=== PATIENT | male | born 1995 ===

== ENCOUNTER 2017-12-16 06:12 | Day surgery (SDC) | payer OTHER ==
[~2017-12-16 06:12] MED LIST: Buffered Lidocaine 0.9% SYRIN* 5 ML/SYR SYRINGE INTRADERM ONE
[2017-12-16] MEDS ORDERED: ceFAZolin 2 GM PREMIX (*) 2 GM/50 ML BAG IVPB ONE (06:19)
[2017-12-16] MEDS ORDERED: fentaNYL* 50 MCG/ML 2 ML VIAL (100 MCG VIAL) ONE ×2 (07:04→09:34)
[2017-12-16] MEDS ORDERED: Midazolam* 1 MG/ML 2 ML VIAL (2 MG) ONE (07:04)
[2017-12-16] MEDS ORDERED: Bupivacaine 0.5%* 50 ML VIAL ONE (07:09)
[2017-12-16] MEDS ORDERED: Lidocaine 2% PF* 10 ML AMP ONE (07:09)
[2017-12-16] MEDS ORDERED: Rocuronium* 10 MG/ML VIAL ONE (07:10)
[2017-12-16] MEDS ORDERED: Acetaminophen TAB* 325 MG PO PRN (07:52)
[2017-12-16] MEDS ORDERED: Scopolamine 1.5 mg* PATCH TRANSDERM PRN (07:52)
[2017-12-16] MEDS ORDERED: oxyCODONE/Acetamin 5/325 MG* TAB PO PRN (07:52)
[2017-12-16] MEDS ORDERED: diPHENhydraMINE IV* 50 MG/ML 1 ml VIAL (BENADRYL) IV PRN (07:52)
[2017-12-16] MEDS ORDERED: Naloxone* 0.4 MG/ML 1 ML VIAL IV PRN (07:52)
[2017-12-16] MEDS ORDERED: Ondansetron INJ* 2 MG/ML VIAL IV PRN (07:52)
[2017-12-16] MEDS ORDERED: fentaNYL* 50 MCG/ML 2 ML VIAL (100 MCG VIAL) IV PRN (07:52)
[2017-12-16] MEDS ORDERED: oxyCODONE TAB* 5 MG TAB PO PRN (07:52)
[2017-12-16] MEDS ORDERED: HYDROmorphone INJ* 1 MG/ML CARPUJECT SYRINGE IV PRN (07:52)
[2017-12-16] MEDS ORDERED: Lidocaine 2% PF * 5 ML VIAL ONE (08:06)
[2017-12-16] MEDS ORDERED: Ketorolac INJ* 30 MG/ML 1 ML VIAL ONE (08:06)
[2017-12-16] MEDS ORDERED: Dexamethasone IV* 4 MG/ML 1 ML (4 MG) ONE (08:06)
[2017-12-16] MEDS ORDERED: Propofol* 10 MG/ML 20 ML BTL IV PUSH ONE (08:06)
[2017-12-16] MEDS ORDERED: Ondansetron INJ* 2 MG/ML VIAL ONE (08:06)
[2017-12-16] MEDS ORDERED: oxyCODONE/Acetamin 5/325 MG* TAB ONE (09:34)
[2017-12-16] MEDS ORDERED: oxyCODONE TAB* 5 MG TAB ONE (09:41)
[2017-12-16] MEDS ORDERED: Acetaminophen TAB* 325 MG ONE (09:41)
[2017-12-16 10:20] VITALS: BP 126/80
--- NOTE | 2017-12-16 22:18 | RAD ---
CPT II Codes: G9500 INDICATION: Right Achilles lengthening TECHNIQUE: Intraoperative fluoroscopy was provided during right Achilles lengthening. FINDINGS: 2 spot films depict plate and screw fixators overlying the talus and navicular bones. Fluoroscopy time: 4 seconds IMPRESSION: As above.
--- NOTE | 2017-12-17 08:21 | OP ---
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 OPERATIVE PROCEDURE: Right talonavicular fusion, tibial bone graft, and talo- Achilles lengthening. DESCRIPTION OF PROCEDURE: The patient was taken to the operating room where we made an extensile medial incision just dorsal to the posterior tibial tendon. We exposed the talonavicular joint with a full capsulotomy. The lamina maintenance engineer was used to open the joint, which was then prepared for arthrodesis using the 4-mm power joe. Proximally at Gerdy's tubercle through a 3 cm incision, we opened up the proximal lateral cortex and harvested cancellous bone. This was then replaced with some allograft chips, 2-0 Vicryl closure for the subcu, and then dennise for the skin. The cancellous bone autograft was mixed with a small amount of allograft and a small amount of DBX putty and placed along the talonavicular joint, front to back 6.5 mm cannulated screw as well as a small T-shaped 3.5 mm Arthrex plate were used to fix the talonavicular joint in a neutral position. We then made a longitudinal incision along the medial tendo Achilles, which had a 6 cm Z-lengthening. We brought tibiotalar joint up to a neutral position and then repaired the tendo-Achilles [id number]-vs-[id number] with 2-0 Vicryl sutures. Both wounds then were irrigated and closed with subcutaneous 2-0 Vicryl, dennise, and a compression dressing. Plaster splint applied. [id number]/[id number] #: [id number] MTDD
[2017-12-19] MEDS ORDERED: Scopolamine PATCH Remove* 1 NOTE MISC PATCH OFF ONE (07:53)
== END 2017-12-16 10:43 | disposition home or self-care (01) ==
LOC: OR 06:12
PROVIDERS: ATTEND Orthopaedic Surgery
DX: M21.6X1 Other acquired deformities of right foot (principal); G60.0 Hereditary motor and sensory neuropathy; G62.9 Polyneuropathy, unspecified
CPT/HCPCS: 76000; A9270-GY; C1713; C1776; C9359; J0690; J1100; J1885; J2001; J2250; J2405; J2704; J3010